=== PATIENT | female | born 1965 | race Caucasian/White ===

== ENCOUNTER → 2023-07-01 08:13 | Outpatient (REF) | payer OTHER, SELFPAY | LOC: RAD 08:13 | PROVIDERS: ATTENDING PHYSICIAN Otolaryngology; FAMILY PHYSICIAN Family Medicine | DX: J32.9 Chronic sinusitis, unspecified (principal) | CPT/HCPCS: 70486 ==

== ENCOUNTER → 2023-10-05 17:59 | Outpatient (REF) | payer BC, SELFPAY | LOC: WDC 17:59 | PROVIDERS: ATTENDING PHYSICIAN Obstetrics & Gynecology Gynecology; FAMILY PHYSICIAN Family Medicine | DX: Z12.31 Encounter for screening mammogram for malignant neoplasm of breast (principal) | CPT/HCPCS: 77063; 77067 ==

== ENCOUNTER → 2024-10-07 13:42 | Outpatient (REF) | payer BC, SELFPAY | LOC: WDC 13:42 | PROVIDERS: ATTENDING PHYSICIAN Family Medicine | DX: Z12.31 Encounter for screening mammogram for malignant neoplasm of breast (principal) | CPT/HCPCS: 77063; 77067 ==